=== PATIENT | female | born 1945 | race Caucasian/White ===

== ENCOUNTER → 2016-12-02 | Outpatient (CLI) | payer MEDICARE, OTHER ==
[~2016-12-02] MED LIST: ALEN70TA4 PO; ASCA500 PO; ASPI81TA28 PO; CALC500C70 PO; FLUO20CA35 PO; FLUO40CA8 PO; LINA1CAP2 PO; LORA-741 PO; MIRT45TA3 PO; MULT-506 PO; SIMV20TA2 PO
--- NOTE | 2016-12-02 15:04 | DIAGNOSTIC IMAGING REPORT ---
ABDOMEN 2VIEW W/PA CHEST RTN CLINICAL HISTORY: Chronic constipation COMPARISON STUDY: No previous studies for comparison. FINDINGS: Erect chest reveals no free air. There is no focal pulmonary consolidation. There is mild to moderate fecal retention. There are no transition zones indicate bowel obstruction. IMPRESSION: Fecal retention. No evidence of bowel obstruction. No evidence of free air. Electronically signed by: Riki Craft M.D. 12/02/2016 3:03 PM Dictated Date/Time: 12/02/2016 3:02 PM
== END | disposition home or self-care (01) ==
LOC: C.RAD1850 14:26
PROVIDERS: ATTEND Registered Nurse
DX: K59.09 Other constipation (principal); Z87.19 Personal history of other diseases of the digestive system

== ENCOUNTER → 2016-12-19 | Outpatient (CLI) | payer MEDICARE ==
--- NOTE | 2016-12-19 16:43 | DIAGNOSTIC IMAGING REPORT ---
ABDOMEN 2VIEW W/PA CHEST RTN CLINICAL HISTORY: K59.09 Chronic [id number] Fecal [id number] COMPARISON STUDY: 12/17/2016 FINDINGS: The erect chest reveals no free intraperitoneal air. There is no focal pulmonary consolidation. Erect and supine views the abdomen reveal scattered air-fluid levels within the right lower quadrant. 25 Sitzmarks are visualized within the colon. There is evidence of fecal retention. The rectum is distended with stool and measures 12 cm transversely. IMPRESSION: Fecal retention with a 12 cm rectum uncorrected for magnification. 25 Sitzmarks are visualized within the colon Electronically signed by: Riki Craft M.D. 12/19/2016 4:41 PM Dictated Date/Time: 12/19/2016 4:39 PM
== END | disposition home or self-care (01) ==
LOC: C.RAD 16:17
PROVIDERS: ATTEND Registered Nurse
DX: K59.09 Other constipation (principal); K56.41 Fecal impaction

== ENCOUNTER → 2017-01-20 | Day surgery (SDC) | payer MEDICARE ==
[2017-01-13 15:36] VITALS: Ht 167.6 cm; Wt 65.9 kg
[~2017-01-20] VITALS: Ht 167.6 cm; Wt 65.9 kg
[~2017-01-20] MED LIST changes: -FLUO20CA35 PO; +LIDOCAINE HCL 2% 2 ML VIAL (20MG/ML) ONE; +PROPOFOL IV EMULSION 10 MG/ML 20 ML VIAL IV ONE; +SODIUM CHLORIDE 0.9% 500ML 500 ML IV ONE
--- NOTE | 2017-01-20 10:31 | Endo History and Physical ---
History & Physical Date of Service: January 20, 2017. Chief Complaint: Chronic constipation Referring Physician: Dr. Ngo History of Present Illness 71 yo CF who presents for colonoscopy secondary to chronic constipation. Past Surgical History Hx Cardiac Surgery: No Hx Internal Defibrillator: No Hx Pacemaker: No Hx Abdominal Surgery: Yes (PARTIAL HYSTER) Hx of Implantable Prosthesis: No Hx Post-Op Nausea and Vomiting: No Hx Cancer Surgery: No Hx Thoracic Surgery: No Hx Orthopedic: No Hx Urinary Tract Surgery: No Family History None Social History Smoking Status: Never Smoker Hx Substance Use: No Hx Alcohol Use: No Allergies Coded Allergies: Iodinated Diagnostic Agents (Verified Allergy, Unknown, HIVES, 01/13/17) Current Medications Reported Home Medications Medications Dose Route/Sig Max Daily Dose Days Date Category Linzess (Linaclotide) 290 Mcg Cap 1 Cap PO QAM 01/13/17 Reported Prozac (Fluoxetine HCl) 40 Mg Cap 40 Mg PO QAM 01/13/17 Reported Fosamax (Alendronate Sodium) 70 Mg Tab 70 Mg PO WK 12/07/16 Reported Os-Moisés 500 Plus D (Calcium/Vitamin D) Tab 2 Tab PO QAM 12/07/16 Reported Vitamin C (Ascorbic Acid) 500 Mg Tab 1 Tab PO QAM 12/07/16 Reported Multivitamin (Multivitamins) Tab 1 Tab PO QAM 12/07/16 Reported Aspirin Ec (Aspirin) 81 Mg Tab 81 Mg PO QAM 12/07/16 Reported Mirtazapine 45 Mg Tab 1 Tab PO HS 12/07/16 Reported Zocor (Simvastatin) 20 Mg Tab 20 Mg PO QPM 12/07/16 Reported Ativan (Lorazepam) 0.5 Mg Tab 0.5 Mg PO BID 12/07/16 Reported Vital Signs Weight (Kilograms): 65.91 Height (Feet): 5 Height (Inches): 6 Physical Exam General Appearance: WD/WN, no apparent distress Respiratory/Chest: Auscultation: breath sounds normal Cardiovascular: Heart Auscultation: RRR Abdomen: Bowel Sounds: normal Inspection & Palpation: soft, non-distended, no tenderness, guarding & rebound Assessment and Plan Assessment: 71 yo CF who presents for colonoscopy secondary to chronic constipation. Plan: Proceed with colonoscopy.
--- NOTE | 2017-01-20 11:27 | GI REPORT ---
Procedure Date: 01/20/2017 11:06 AM Procedure: Colonoscopy Indications: Constipation Medicines: Monitored Anesthesia Care Complications: No immediate complications. Estimated Blood Loss: Estimated blood loss: none. Procedure: Pre-Anesthesia Assessment: - Prior to the procedure, a History and Physical was performed, and patient medications and allergies were reviewed. The patient's tolerance of previous anesthesia was also reviewed. The risks and benefits of the procedure and the sedation options and risks were discussed with the patient. All questions were answered, and informed consent was obtained. Prior Anticoagulants: The patient has taken aspirin, last dose was 3 days prior to procedure. ASA Grade Assessment: II - A patient with mild systemic disease. After reviewing the risks and benefits, the patient was deemed in satisfactory condition to undergo the procedure. After I obtained informed consent, the scope was passed under direct vision. Throughout the procedure, the patient's blood pressure, pulse, and oxygen saturations were monitored continuously. The scope was introduced through the anus with the intention of advancing to the ileum. The scope was advanced to the rectum before the procedure was aborted. Medications were given. The colonoscopy was performed with difficulty due to unsatisfactory bowel prep. The patient tolerated the procedure well. The quality of the bowel preparation was unsatisfactory. No anatomical landmarks were photographed. Findings: Copious quantities of semi-solid solid stool was found in the rectum, precluding visualization. Impression: - Preparation of the colon was unsatisfactory. - Stool in the rectum. - No specimens collected. Recommendation: - Resume previous diet. - Continue present medications. - Repeat colonoscopy in 6 months because the bowel preparation was poor. - Return to primary care physician as previously scheduled. Raymundo Luevano, 01/20/2017 11:26:13 AM This report has been signed electronically. Note Initiated On: 01/20/2017 11:06 AM I attest to the content of the Intraoperative Record and orders documented therein, exceptions below
--- NOTE | 2017-01-20 11:32 | Discharge Instructions ---
Endoscopy Patient Instructions Date / Procedure(s) Performed January 20, 2017. Colonoscopy Allergy Information Coded Allergies: Iodinated Diagnostic Agents (Verified Allergy, Unknown, HIVES, 01/13/17) Discharge Date / Findings January 20, 2017. Poor bowel prep Medication Instructions Stopped Medication(s): took ASA yesterday OK to resume all medications today as prescribed Reported Home Medications Medications Dose Route/Sig Max Daily Dose Days Date Category Linzess (Linaclotide) 290 Mcg Cap 1 Cap PO QAM 01/13/17 Reported Prozac (Fluoxetine HCl) 40 Mg Cap 40 Mg PO QAM 01/13/17 Reported Fosamax (Alendronate Sodium) 70 Mg Tab 70 Mg PO WK 12/07/16 Reported Os-Moisés 500 Plus D (Calcium/Vitamin D) Tab 2 Tab PO QAM 12/07/16 Reported Vitamin C (Ascorbic Acid) 500 Mg Tab 1 Tab PO QAM 12/07/16 Reported Multivitamin (Multivitamins) Tab 1 Tab PO QAM 12/07/16 Reported Aspirin Ec (Aspirin) 81 Mg Tab 81 Mg PO QAM 12/07/16 Reported Mirtazapine 45 Mg Tab 1 Tab PO HS 12/07/16 Reported Zocor (Simvastatin) 20 Mg Tab 20 Mg PO QPM 12/07/16 Reported Ativan (Lorazepam) 0.5 Mg Tab 0.5 Mg PO BID 12/07/16 Reported Provider Instructions Activity Restrictions - No exercising or heavy lifting for 24 hours. - Do not drink alcohol the day of the procedure. - Do not drive a car or operate machinery until the day after the procedure. - Do not make any important decisions or sign important papers in 24 hours after the procedure. Following Day: - Return to full activity which may include returning to work/school. Diet Start your diet with liquids and light foods (jello, soup, juice, toast). Then eat your usual diet if not nauseated. Treatment For Common After Affects For mild abdominal pain, bloating, or excessive gas: - Rest - Eat lightly - Lie on right side Follow-Up Information Follow-up with Dr. Sarah Ngo as scheduled Anesthesia Information What You Should Know You have had a procedure that required some medicine to reduce anxiety and discomfort. This treatment is called moderate sedation. After receiving the treatment, you may be sleepy, but you will be able to breathe on your own. The effects of the treatment may last for several hours. Follow these instructions along with Activity/Diet recommendations noted above: * Do NOT do anything where dizziness or clumsiness would be dangerous. * Rest quietly at home today, then you can be up and about tomorrow. * Have a responsible person stay with you the rest of today. * You may have had an I.V. today. If so, you may take the dressing off later today. Recommendations Call your doctor if: * Trouble breathing * Continuous vomiting for more than 24 hours * Temperature above 101 degrees * Severe abdominal pain or bloating * Pain not relieved by pain medicine ordered * There is increased drainage or redness from any incision * A large amount of rectal bleeding greater than 2-3 tablespoons. (If you had a polyp/s removed or have hemorrhoids, a small amount of blood - from the rectum is to be expected.) * You have any unanswered questions or concerns. IN THE EVENT OF A SERIOUS EMERGENCY, GO TO THE NEAREST EMERGENCY ROOM Your discharge instructions were prepared by provider Raymundo Luevano. Patient Instructions Signature Page Lucinda Yanes Patient (or Guardian) Signature/Date: I have read and understand the instructions given to me by my caregivers. Caregiver/RN/Doctor Signature/Date: The above-named patient and/or guardian has received patient instructions on this date. + Original Patient Signature Page (only) stays with chart. Please make copy for patient.
[2017-01-20 11:49] VITALS: BP 120/65; PULSE 61; O2SAT 99
--- NOTE | 2017-01-20 12:30 | Anesthesiology Progress Note ---
Anesthesia Post Op Note Date & Time January 20, 2017 at 12:30 Vital Signs Pain Intensity: 0 Vital Signs Past 12 Hours Date Time Temp Pulse Resp B/P Pulse Ox O2 Delivery O2 Flow Rate FiO2 01/20/17 11:49 61 20 120/65 99 Room Air 01/20/17 11:32 63 20 120/66 100 Room Air 01/20/17 11:18 36.5 61 20 116/62 97 Room Air 01/20/17 10:32 36.7 67 20 132/69 97 Room Air Notes Mental Status: alert / awake / arousable, participated in evaluation Pt Amnestic to Procedure: Yes Nausea / Vomiting: adequately controlled Pain: adequately controlled Airway Patency, RR, SpO2: stable & adequate BP & HR: stable & adequate Hydration State: stable & adequate Anesthetic Complications: no major complications apparent
== END | disposition home or self-care (01) ==
LOC: C.GI 09:54
PROVIDERS: ATTEND Internal Medicine
DX: K59.09 Other constipation (principal)